=== PATIENT | female | born 1985 | race Two or more races ===

== ENCOUNTER 2023-06-16 21:48 | Emergency (ER) | payer OTHER ==
[~2023-06-16] VITALS: Ht 160 cm; Wt 68.0 kg
[2023-06-16] MEDS ORDERED: CLINDAMYCIN PHOSPHATE 150 MG/ML (600mg) IM STA (23:09)
[2023-06-16] MEDS ORDERED: KETOROLAC TROMETHAMINE 30 MG VIAL IM STA (23:10)
[2023-06-17 02:27] LABS: HEMATOCRIT 34.5 % (36.0-45.00); HEMOGLOBIN 11.8 g/dL (12.0-15.00); MEAN CELL VOLUME 85.9 fL (80.00-100.00); MEAN CORPUSCULAR HEMOGLOBIN 29.5 pg (27.00-32.0); MEAN CORPUSCULAR HGB CONC 34.3 g/dl (32.0-36.0); PLATELET COUNT 211 K/uL (150-450); RED BLOOD COUNT 4.01 M/uL (4.00-6.00); RED CELL DISTRIBUTION WIDTH 13.5 % (11.5-14.5)
[2023-06-17] MEDS ORDERED: ENOXAPARIN SODIUM 60 MG/0.6 ML SYRINGE SUBCUTANEO ONE (02:45)
[2023-06-17] MEDS ORDERED: OxyCODONE HCL/APAP UD (PERCOCET) PO ONE (03:00)
== END 2023-06-17 13:57 | disposition home or self-care (01) ==
LOC: ER 21:49
PROVIDERS: General Practice
DX: S82.142A Displaced bicondylar fracture of left tibia, initial encounter for closed fracture (principal); X58.XXXA Exposure to other specified factors, initial encounter; Y93.79 Activity, other specified sports and athletics; Y92.89 Other specified places as the place of occurrence of the external cause; Y99.8 Other external cause status; M25.562 Pain in left knee; Z88.0 Allergy status to penicillin
CPT/HCPCS: 29799; 36415; 73560; 73700; 96372; 99284; J1885; J3490